=== PATIENT | female | born 2000 | race Asian ===

== ENCOUNTER 2019-11-04 11:38 | Emergency (ER) | payer OTHER, SELFPAY ==
--- NOTE | ~2019-11-04 | XR_ITS ---
EXAMINATION: XR ankle LT min 3V DATE: 11/04/2019 12:52 INDICATION: Left ankle injury and pain. TECHNIQUE: 4 views of left ankle were obtained. COMPARISON: None. FINDINGS: Bone alignment is normal. No fracture. Joint spaces are normal. There is ankle soft tissue swelling. IMPRESSION: 1. No fracture. Reviewed, dictated and finalized at location A. IMPRESSION: 1. No fracture.
--- NOTE | 2019-11-04 11:58 | ED.LOWEXIN ---
HPI - Extremity Injury (Lower) General Chief Complaint: Extremity Injury, Lower Stated Complaint: left foot Time Seen by Provider: 11/04/19 11:59 Source: patient and RN notes reviewed Mode of arrival: ambulatory Limitations: no limitations History of Present Illness HPI Narrative: This is a 19 years old female presents to the office for an evaluation of left ankle injury yesterday last night at around 6pm. States, she accidentally rolled her left ankle while walking between the grass. Denies any other injury. She tried ice last night. Denies history of broken left ankle however she had sprained it in the past when she was playing sport. Related Data Home Medications Medication Instructions Recorded Confirmed No Home Medications 11/04/19 11/04/19 Allergies Allergy/AdvReac Type Severity Reaction Status Date / Time No Known Allergies Allergy Verified 11/04/19 11:43 Review of Systems Review of Systems: Narrative: CONSTITUTIONAL: Denies fever or feeling CARDIOVASCULAR: Denies chest pain RESPIRATORY: Denies dyspnea GASTROINTESTINAL: Denies abdominal pain, nausea, vomiting MUSCULOSKELETAL: Reports left ankle pain with swelling NEUROLOGIC: Denies lightheaded All systems reviewed & are unremarkable except as noted in HPI and below PMFSH Comments At time of signature, I agree with nursing past medical, surgical, social and family history. There is no relevant family history pertinent to the presenting complaint. Exam Narrative: Exam Narrative: GENERAL: This is a well-nourished, well-developed patient, in no apparent distress. HEAD: Atraumatic. Normocephalic. No temporal or scalp tenderness. EYES: Sclera and conjunctivae normal ENT: External ears normal. Nose and lips normal. Airway patent. CARDIOVASCULAR: Regular rate and rhythm without murmurs, gallops, or rubs. RESPIRATORY: Clear to auscultation. Breath sounds equal bilaterally. No wheezes, rales, or rhonchi. GASTROINTESTINAL: Abdomen soft, non-tender, nondistended. Bowel sounds are active.No guarding. SKIN: warm, intact with no suspicious lesions or rash, good texture and turgor. NEURO: awake, alert, and oriented to person, place and time. There were no obvious focal neurologic abnormalities. EXTREMITIES: The left ankle is swollen and tender over the lateral aspect but the skin is intact and there is no ligamentous instability. There is no deformity. The foot and toes are warm and well-perfused. Sensation to pain and light touch is intact. The skin is intact. Course Vital Signs Vital signs: Vital Signs Pulse Rate 79 11/04/19 11:59 Respiratory Rate 16 11/04/19 11:59 Blood Pressure 119/69 11/04/19 11:59 Pulse Oximetry 99 11/04/19 11:59 Pulse Rate 79 11/04/19 11:59 Respiratory Rate 16 11/04/19 11:59 Blood Pressure 119/69 11/04/19 11:59 Pulse Oximetry 99 11/04/19 11:59 MDM - Extremity Injury (Lower) MDM Narrative Medical decision making narrative: Discharge instructions reviewed with patient, as well as provided in writing per nursing staff. The instructions also include specific and strict return/GO TO THE ER as well as f/u information. All questions have been answered, and the patient deny any further questions with discharge and discharge plan. Differential Diagnosis Differential diagnosis: Likely ankle sprain and strain, fracture of toe and ankle fracture Lab Data Labs: UCG Bedside Result Negative Reference Range: Negative Imaging Data Attestation: I personally reviewed and interpreted this imaging study as follows: My impression: see report Radiologist's impression: no fracture Critical Care Time Critical Care Time Critical Care Time: No Discharge Plan Discharge Clinical Impression: Ankle sprain and strain Injury of ankle, left Qualifiers: Encounter type: initial encounter Qualified Code(s): S99.912A - Unspecified injury of left ankle, initial encounter Patient Disposition
[2019-11-04 11:59] VITALS: BP 119/69; PULSE 79; RESP 16; O2SAT 99
== END 2019-11-04 13:05 | disposition home or self-care (01) ==
PROVIDERS: Emergency Provider Nurse Practitioner
DX: S99.912A Unspecified injury of left ankle, initial encounter (principal); X50.9XXA Other and unspecified overexertion or strenuous movements or postures, initial encounter
CPT/HCPCS: 73610; 81025; 99203; G0463